=== PATIENT | female | born 2005 | race Caucasian/White ===

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

== ENCOUNTER 2024-01-07 12:13 | Outpatient (RCR) | payer OTHER, SELFPAY | END 2024-01-07 23:59 | disposition home or self-care (01) | LOC: RPT 12:13 | PROVIDERS: ATTENDING PHYSICIAN Physician Assistant Surgical; FAMILY PHYSICIAN Nurse Practitioner Family | DX: M76.32 Iliotibial band syndrome, left leg (principal); M92.522 Juvenile osteochondrosis of tibia tubercle, left leg; Z73.6 Limitation of activities due to disability | CPT/HCPCS: 97112 ==